=== PATIENT | female | born 1995 | race Caucasian/White ===

== ENCOUNTER 2019-01-03 05:36 | Outpatient (CLI) | payer OTHER ==
[2019-01-03] MEDS: LACTATED RINGER'S 1,000 ML IV (06:50)
[2019-01-03 08:43] LABS: ADD UMIC YES; UR ASCORBIC ACID NEGATIVE (NEGATIVE); UR BACTERIA FEW /HPF (NONE SEEN); UR BILIRUBIN (Dip) NEGATIVE (NEGATIVE); UR BLOOD (Dip) NEGATIVE (NEGATIVE); UR CLARITY CLEAR (CLEAR); UR COLOR YELLOW (YELLOW); UR GLUCOSE (Dip) NEGATIVE (NEGATIVE); UR KETONES (Dip) NEGATIVE (NEGATIVE); UR LEUKOCYTE ESTERASE (Dip) 2+ Leu/ul (NEGATIVE); UR NITRITE (Dip) NEGATIVE (NEGATIVE); UR RBC 0 /HPF (0-5); UR SPECIFIC GRAVITY (Dip) 1.011 (1.003-1.030); UR SQUAMOUS EPITHELIAL CELL FEW /HPF (FEW); UR TOTAL PROTEIN (Dip) NEGATIVE (NEGATIVE); UR UROBILINOGEN (Dip) NEGATIVE (NEGATIVE); UR WBC 5 /HPF (0-5)
== END 2019-01-03 09:05 | disposition home or self-care (01) ==
LOC: OBT 05:36 → L-D 05:36 → OBT 09:05
DX: O26.893 Other specified pregnancy related conditions, third trimester (principal); R10.2 Pelvic and perineal pain; R05 Cough; Z3A.33 33 weeks gestation of pregnancy
CPT/HCPCS: 36415; 76817; 76818; 81001; 96360; 96361

== ENCOUNTER 2019-02-10 15:25 | Inpatient (IN) | payer OTHER ==
[2019-02-10] MEDS ORDERED: MISOPROSTOL 200 MCG TAB PR ×2 (16:30→20:30)
[2019-02-10] MEDS ORDERED: OXYTOCIN 30 UNITS/LR 500 ML IV (16:30)
[2019-02-10] MEDS ORDERED: CARBOPROST 250 MCG INJ IM (16:30)
[2019-02-10] MEDS ORDERED: METHYLERGONOVINE 0.2 MG INJ IM (16:30)
[2019-02-10 16:35] LABS: ADD MAN DIFF? NO
[2019-02-10 16:37] LABS: BASOPHILS % 0.4 % (0.0-2.0); EOSINOPHILS # 0.1 10^3/ul (0.0-0.5); EOSINOPHILS % 1.3 % (0.0-7.0); HEMATOCRIT 28.8 % (37.0-47.0); HEMOGLOBIN 9.1 g/dl (12.0-16.0); LYMPHOCYTES # 1.8 10^3/ul (0.8-2.9); LYMPHOCYTES % 24.8 % (15.0-51.0); MEAN CORPUSCULAR HEMOGLOBIN 25.6 pg (29.0-33.0); MEAN CORPUSCULAR HGB CONC 31.6 g/dl (32.0-37.0); MEAN CORPUSCULAR VOLUME 80.9 fl (82.0-101.0); MEAN PLATELET VOLUME 11.7 fl (7.4-10.4); MONOCYTE # 0.3 10^3/ul (0.3-0.9); MONOCYTES % 4.8 % (0.0-11.0); NEUTROPHIL # 4.8 10^3/ul (1.6-7.5); NEUTROPHILS % 67.9 % (39.0-77.0); PLATELET COUNT 171 10^3/UL (140-415); RED BLOOD COUNT 3.56 10^6/ul (4.20-5.40); RED CELL DISTRIBUTION WIDTH 14.3 % (11.5-14.5)
[2019-02-10 16:37] LABS: WHITE BLOOD COUNT 7.1 10^3/ul (4.8-10.8)
[2019-02-10] MEDS: LACTATED RINGER'S 1,000 ML IV ×2 (16:54)
[2019-02-10 17:09] LABS: INR 0.92; PROTIME 12.5 Sec (11.9-14.9)
[2019-02-10 17:10] LABS: PARTIAL THROMBOPLASTIN TIME 26.5 Sec (23.0-35.0)
[2019-02-10 17:45] LABS: HEPATITIS B SURFACE ANTIGEN NEGATIVE (NEGATIVE)
[2019-02-10] MEDS ORDERED: PHENYLephrine (100 MCG/ML) 10ML SYG (19:59)
[2019-02-10] MEDS ORDERED: morphine SULFATE/PF (10 MG/10 ML) INJ (19:59)
[2019-02-10] MEDS ORDERED: CEFAZOLIN 1 GM INJ (20:00)
[2019-02-10] MEDS ORDERED: ONDANSETRON 4 MG INJ (20:09)
[2019-02-10] MEDS ORDERED: DEXAMETHASONE 4 MG/ML 1 ML INJ (20:09)
[2019-02-10] MEDS ORDERED: OXYCODONE/ACETAMINOPHEN (5/325) TAB PO (20:30)
[2019-02-10] MEDS ORDERED: NA PHOSPHATE/BIPHOS 133 ML ENEMA PR (20:30)
[2019-02-10] MEDS ORDERED: NALOXONE (0.4 MG/ML) INJ IV (21:00)
[2019-02-10] MEDS ORDERED: ZOLPIDEM 5 MG TAB PO (21:00)
[2019-02-10] MEDS ORDERED: DIPHENHYDRAMINE 50 MG INJ IV (21:00)
[2019-02-10] MEDS ORDERED: ONDANSETRON 4 MG INJ IV (21:00)
[2019-02-10] MEDS ORDERED: HYDROmorphONE 0.5 MG/0.5 ML SYG IV ×2 (21:00)
[2019-02-10] MEDS: OXYTOCIN 30 UNITS/LR 500 ML IV (21:22)
[2019-02-10] MEDS: IBUPROFEN 600 MG TAB PO (23:48)
[2019-02-10] MEDS: SENNA/DOCUSATE NA (8.6MG/50MG) TAB PO (23:48)
[2019-02-11] MEDS: CEFAZOLIN 2 GM/50 ML (PMX) 50 ML IVPB (02:27)
[2019-02-11] MEDS: OXYTOCIN 30 UNITS/LR 500 ML IV (02:35)
[2019-02-11] MEDS: KETOROLAC 30 MG INJ IV (05:41)
[2019-02-11] MEDS: IBUPROFEN 600 MG TAB PO ×4 (05:59→23:25)
[2019-02-11] MEDS: LACTATED RINGER'S 1,000 ML IV ×3 (06:22→13:43)
[2019-02-11 07:00] LABS: ADD MAN DIFF? NO
[2019-02-11 07:06] LABS: BASOPHILS % 0.2 % (0.0-2.0); EOSINOPHILS % 0.1 % (0.0-7.0); HEMATOCRIT 28.1 % (37.0-47.0); HEMOGLOBIN 8.9 g/dl (12.0-16.0); LYMPHOCYTES # 1.5 10^3/ul (0.8-2.9); LYMPHOCYTES % 13.2 % (15.0-51.0); MEAN CORPUSCULAR HEMOGLOBIN 25.4 pg (29.0-33.0); MEAN CORPUSCULAR HGB CONC 31.7 g/dl (32.0-37.0); MEAN CORPUSCULAR VOLUME 80.1 fl (82.0-101.0); MEAN PLATELET VOLUME 11.9 fl (7.4-10.4); MONOCYTE # 0.4 10^3/ul (0.3-0.9); MONOCYTES % 3.7 % (0.0-11.0); NEUTROPHILS % 82.3 % (39.0-77.0); PLATELET COUNT 178 10^3/UL (140-415); RED BLOOD COUNT 3.51 10^6/ul (4.20-5.40); RED CELL DISTRIBUTION WIDTH 14.2 % (11.5-14.5)
[2019-02-11] MEDS: SENNA/DOCUSATE NA (8.6MG/50MG) TAB PO ×2 (10:11→21:10)
[2019-02-11 15:19] LABS: RAPID PLASMA REAGIN NONREACTIVE (NR)
[2019-02-12] MEDS: OXYCODONE/ACETAMINOPHEN (5/325) TAB PO ×2 (04:47→08:48)
[2019-02-12] MEDS: IBUPROFEN 600 MG TAB PO ×4 (05:50→23:54)
[2019-02-12] MEDS: SENNA/DOCUSATE NA (8.6MG/50MG) TAB PO ×2 (08:47→20:58)
[2019-02-12] MEDS: LANOLIN HPA 1 PKT TOP (13:54)
[2019-02-13] MEDS: IBUPROFEN 600 MG TAB PO ×2 (05:33→12:35)
[2019-02-13] MEDS: DIPHTH/TET/ACEL PERTUSS (ADULT) 0.5 ML VIAL IM* (09:00)
[2019-02-13] MEDS: MEASLES,MUMPS,RUBELLA VACCINE INJ SC* (09:00)
[2019-02-13] MEDS: LANOLIN HPA 1 PKT TOP (09:18)
[2019-02-13] MEDS: SENNA/DOCUSATE NA (8.6MG/50MG) TAB PO (09:18)
== END 2019-02-13 15:18 | disposition home or self-care (01) | DRG 788 ==
LOC: L-D 15:25 → PP1 22:56
PROVIDERS: Specialist
PROC: 10D00Z1 Extraction of Products of Conception, Low, Open Approach (ICD-10-PCS; principal; 2019-02-10)
DX: O34.211 Maternal care for low transverse scar from previous cesarean delivery (principal); Z3A.39 39 weeks gestation of pregnancy; Z37.0 Single live birth
CPT/HCPCS: 85025; 85610; 85730; 86592; 86850; 86900; 86901; 87340; 99464